=== PATIENT | female | born 1990 | race Caucasian/White ===

== ENCOUNTER 2017-08-10 13:33 | Emergency (ER) | payer OTHER ==
[~2017-08-10] VITALS: Ht 152.4 cm; Wt 52.2 kg
== END 2017-08-10 16:20 | disposition home or self-care (01) ==
LOC: ED 13:33
DX: R10.2 Pelvic and perineal pain (principal); R10.30 Lower abdominal pain, unspecified
CPT/HCPCS: 74177; 80053; 81001; 82150; 83690; 84703; 85025; 96374; 96375; 99284; J1170; J1885; J2405; J7030; Q9967

== ENCOUNTER 2018-08-01 12:51 | Emergency (ER) | payer OTHER ==
[~2018-08-01] VITALS: Ht 152.4 cm; Wt 52.2 kg
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
== END 2018-08-01 14:02 | disposition home or self-care (01) ==
LOC: ED 12:51
DX: S62.635A Displaced fracture of distal phalanx of left ring finger, initial encounter for closed fracture (principal); X58.XXXA Exposure to other specified factors, initial encounter; F17.200 Nicotine dependence, unspecified, uncomplicated; Z88.1 Allergy status to other antibiotic agents
CPT/HCPCS: 29130; 73140; 99283-25

== ENCOUNTER 2021-04-16 09:06 | Emergency (ER) | payer OTHER ==
[~2021-04-16] VITALS: Ht 152.4 cm; Wt 56.2 kg
--- OUTSIDE RECORDS SUMMARY | 2021-04-16 09:10 | XMS ---
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 Ajay has no Care Guidelines for this patient. Care History Medical/Surgical 08/15/2018 [facility] - PATIENT DOES NOT HAVE A CONTACT NUMBER AND OR ADDRESS LISTED. - PLEASE PROVIDE PATIENT WITH CHW CONTACT NUMBER IF SEEN IN THE ED [phone] . - PATIENT DOES NOT HAVE A PCP FOR FOLLOW UP. E.D. VISIT COUNT (12 MO.) 1 [facility] TOTAL 1 NOTE: Visits indicate total known visits. ED/UCC VISIT TRACKING (12 MO.) 04/16/2021 09:[address] [facility] [place] TYPE: Emergency COMPLAINT: - MOUTH SORE INPATIENT VISIT TRACKING (12 MO.) No inpatient visits to display in this time frame [id number]
[2021-04-16] MEDS ORDERED: CLEOCIN HCL300 MG PO (10:34)
[2021-04-16] MEDS ORDERED: NAPROSYN500 MG PO (10:34)
== END 2021-04-16 10:48 | disposition home or self-care (01) ==
LOC: ED 09:06
DX: K06.8 Other specified disorders of gingiva and edentulous alveolar ridge (principal); K21.9 Gastro-esophageal reflux disease without esophagitis; F17.200 Nicotine dependence, unspecified, uncomplicated; Z88.1 Allergy status to other antibiotic agents
CPT/HCPCS: 99282

== ENCOUNTER 2022-11-06 03:47 | Emergency (ER) | payer OTHER ==
[~2022-11-06] VITALS: Ht 152.4 cm; Wt 56.2 kg
[~2022-11-06 03:47] MED LIST: BUSPIRONE HCL5 MG PO; CEPHALEXIN500 M1 PO; CLEOCIN HCL300 MG PO; FLUOXETINE HCL20 MG PO; NAPROSYN500 MG PO; OLANZAPINE10 MG; SULFAMETHOXAZO1 EAC1 PO
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
[2022-11-06 14:01] VITALS: BP 116/75
== END 2022-11-06 14:01 | disposition home or self-care (01) ==
LOC: ED 03:47
DX: F15.10 Other stimulant abuse, uncomplicated (principal); F17.200 Nicotine dependence, unspecified, uncomplicated; Z79.899 Other long term (current) drug therapy; Z88.1 Allergy status to other antibiotic agents
CPT/HCPCS: 36415; 71045; 80053; 81001; 84443; 84703; 85025; 96374; 96375; 99285-25; G0480; J2060; J2405; J3490; J7121

== ENCOUNTER 2024-07-06 18:11 | Emergency (ER) | payer OTHER ==
[~2024-07-06] VITALS: Ht 152.4 cm; Wt 65.8 kg
[~2024-07-06 18:11] MED LIST changes: +PRAZOSIN HCL2 MG PO
[2024-07-06] MEDS ORDERED: NALOXONE 4 MG NASAL SPRAY #2 HOME.PACK NAS ONE (20:00)
[2024-07-06 20:40] VITALS: BP 108/65
== END 2024-07-06 20:41 | disposition home or self-care (01) ==
LOC: ED 18:11
DX: T40.411A Poisoning by fentanyl or fentanyl analogs, accidental (unintentional), initial encounter (principal); R40.4 Transient alteration of awareness; K21.9 Gastro-esophageal reflux disease without esophagitis; F17.200 Nicotine dependence, unspecified, uncomplicated; Z91.030 Bee allergy status; Z88.1 Allergy status to other antibiotic agents; Z79.899 Other long term (current) drug therapy
CPT/HCPCS: 99284; J3490